=== PATIENT | female | born 1960 | race African-American/Black ===

== ENCOUNTER 2018-01-26 08:57 | Emergency (ER) | payer MEDICARE, MEDICAID ==
[~2018-01-26] VITALS: Ht 162.6 cm; Wt 68.0 kg
[~2018-01-26 08:57] MED LIST: AMLO10TA80 PO; BACL20TA PO; DOCU-150 PO; HYDR-519 PO; ONDA4TAB5 PO; PANT40TA4 PO; RANI150T7 PO
[2018-01-26 09:04] VITALS: BP 154/98
== END 2018-01-26 13:55 | disposition left against medical advice (07) ==
LOC: ER 08:57
DX: Z53.21 Procedure and treatment not carried out due to patient leaving prior to being seen by health care provider (principal)